=== PATIENT | female | born 1980 | race Caucasian/White ===

== ENCOUNTER 2016-05-19 19:17 | Emergency (ER) | payer OTHER ==
[~2016-05-19] VITALS: Ht 165.1 cm; Wt 90.7 kg
[~2016-05-19 19:17] MED LIST: ANAPROX DS550 MG PO; AUGMENTIN 875 M1 TAB PO; BACTROBAN OINT22 GM TP; CATAFLAM50 MG PO; CEPHALEXIN500 M1 PO; CLARITIN10 MG PO; COMPAZINE10 MG PO; DAYPRO600 M1 PO; FLAGYL500 MG PO; FLEXERIL10 MG PO; FLEXERIL5 MG PO; FLUCONAZOLE100 MG PO; HYDROCODONE BIT1 T11 PO; MACROBID100 M1 PO; MEDROL DOSEPAK4 MG PO; NAPROSYN500 MG PO; NKHM; PREDNISONE10 MG PO; PROVENTIL0.09 MG/AC IH; PYRIDIUM200 MG PO; ROBAXIN750 MG PO; TRAMADOL HCL50 MG PO; ULTRAM50 MG PO; VALTREX1 GM PO; VICODIN 500 MG-1 TAB PO; ZANTAC150 MG PO; ZITHROMAX Z PA250 MG PO; ZOFRAN ODT4 MG SL
[2016-05-19 19:22] VITALS: BP 139/86
[2016-05-19] MEDS ORDERED: HYDROCODONE BIT1 T11 PO (19:39)
[2016-05-19] MEDS ORDERED: BACTRIM DS 8001 TA1 PO (19:39)
[2016-05-19] MEDS ORDERED: CEPHALEXIN500 M1 PO (19:39)
== END 2016-05-19 19:40 | disposition home or self-care (01) ==
LOC: ED 19:17
DX: N61.0 Mastitis without abscess (principal); F17.200 Nicotine dependence, unspecified, uncomplicated; Z98.890 Other specified postprocedural states; Z88.6 Allergy status to analgesic agent

== ENCOUNTER 2016-05-21 18:51 | Emergency (ER) | payer OTHER ==
[~2016-05-21] VITALS: Ht 165.1 cm; Wt 86.2 kg
[~2016-05-21 18:51] MED LIST changes: +BACTRIM DS 8001 TA1 PO
[2016-05-21 19:15] VITALS: BP 133/75
[2016-05-21] MEDS ORDERED: CLINDAMYCIN150 MG PO (19:22)
[2016-05-21] MEDS ORDERED: ZOFRAN4 MG PO (19:22)
== END 2016-05-21 19:28 | disposition home or self-care (01) ==
LOC: ED 18:51
DX: L02.412 Cutaneous abscess of left axilla (principal); R03.0 Elevated blood-pressure reading, without diagnosis of hypertension; F17.200 Nicotine dependence, unspecified, uncomplicated; G43.909 Migraine, unspecified, not intractable, without status migrainosus

== ENCOUNTER 2016-08-03 20:51 | Emergency (ER) | payer OTHER ==
[~2016-08-03] VITALS: Wt 104.3 kg
[~2016-08-03 20:51] MED LIST changes: +CLINDAMYCIN150 MG PO; +ZOFRAN4 MG PO
[2016-08-03 20:54] VITALS: BP 142/78
[2016-08-03 21:08] LABS: BILIRUBIN NEGATIVE (NEGATIVE); BLOOD NEGATIVE (NEGATIVE); CLARITY SL CLOUDY (CLEAR); COLOR YELLOW (YELLOW); GLUCOSE NEGATIVE (NEGATIVE); KETONE NEGATIVE (NEGATIVE); LEUKO ESTERASE NEGATIVE (NEGATIVE); NITRITE NEGATIVE (NEGATIVE); PH 5.5 (5.0-9.0); PROTEIN NEGATIVE (NEGATIVE); SPECIFIC GRAVITY >= 1.030 (1.005-1.030); UROBILINOGEN 0.2 E.U./dl (0.2-1.0)
[2016-08-03 21:13] LABS: BACTERIA 2+; RBC 0-2 rbc/hpf (0-2); URINE REFLEX COMMENT YES (NO)
[2016-08-03 21:31] LABS: HEMATOCRIT 37.1 % (37.0-47.0); HEMOGLOBIN 12.5 g/dl (12.0-16.0); MEAN CELL VOLUME 83.9 fl (81.0-99.0); MEAN CORPUSCULAR HGB 28.3 pg (27.0-31.0); MEAN CORPUSCULAR HGB CONC 33.7 g/dl (33.0-37.0); MEAN PLATELET VOLUME 9.1 fl (9.6-12.3); PLATELET COUNT AUTOMATED 337 10*3/uL (130-400); RED BLOOD COUNT 4.42 10*6/uL (4.10-5.10); RED CELL DISTRI WIDTH 13.2 % (0-14.5); WHITE BLOOD COUNT 13.2 10*3/uL (4.8-10.8)
[2016-08-03 21:43] LABS: BUN 11 mg/dl (7-24); CARBON DIOXIDE 25 mmol/L (21-32); CHLORIDE 104 mmol/L (98-107); EST GLOM FILT AFRICAN AMERICAN > 60 ml/min; GLUCOSE 110 mg/dL (65-99); POTASSIUM 4.7 mmol/L (3.5-5.1); SODIUM 139 mmol/L (136-145)
[2016-08-03 21:51] LABS: EOSINOPHIL # 0.1 10*3/uL (0-0.4); EOSINOPHILS 1 % (1-4); LYMPHOCYTE # 5.4 10*3/uL (1.3-4.4); MONOCYTE # 0.5 10*3/uL (0.1-1.0); NEUTROPHIL # 7.1 10*3/uL (2.3-7.9); NEUTROPHILS 54 % (47-73); PLATELET SUFFICIENCY NORMAL (NORMAL); TOTAL CELLS COUNTED 100 #CELLS
[2016-08-03] MEDS ORDERED: KEFLEX500 M1 PO (22:29)
[2016-08-03] MEDS ORDERED: CIPRO500 MG PO (22:29)
[2016-08-03] MEDS ORDERED: LOMOTIL 0.025 M1 TA1 PO (22:29)
[2016-08-03] MEDS ORDERED: DIFLUCAN150 MG PO (22:33)
== END 2016-08-03 22:29 | disposition home or self-care (01) ==
LOC: ED 20:51
PROVIDERS: Emergency Medicine Emergency Medical Services
DX: K52.9 Noninfective gastroenteritis and colitis, unspecified (principal); L02.412 Cutaneous abscess of left axilla; L02.213 Cutaneous abscess of chest wall; M54.5 Low back pain; R30.0 Dysuria

== ENCOUNTER 2017-08-14 19:45 | Emergency (ER) | payer OTHER ==
[~2017-08-14] VITALS: Ht 165.1 cm; Wt 127.0 kg
[~2017-08-14 19:45] MED LIST changes: +CIPRO500 MG PO; +DIFLUCAN150 MG PO; +KEFLEX500 M1 PO; +LOMOTIL 0.025 M1 TA1 PO
[2017-08-14 20:08] VITALS: BP 148/88
[2017-08-14 20:17] LABS: BASO % 0.4 % (0.0-1.0); EOS # 0.2 10*3/uL (0.0-0.4); EOS % 1.8 % (1.0-4.0); HEMOGLOBIN 11.8 g/dl (12.0-16.0); LYMPH # 3.9 10*3/uL (1.3-4.4); LYMPH % 46.3 % (27.0-41.0); MEAN CELL VOLUME 86.9 fl (81.0-99.0); MEAN CORPUSCULAR HGB 27.7 pg (27.0-31.0); MEAN CORPUSCULAR HGB CONC 31.9 g/dl (33.0-37.0); MEAN PLATELET VOLUME 9.3 fl (9.6-12.3); MONO # 0.6 10*3/uL (0.1-1.0); MONO % 7.1 % (3.0-9.0); NEUT # 3.7 10*3/uL (2.3-7.9); NEUT % 44.2 % (47.0-73.0); PLATELET COUNT AUTOMATED 324 10*3/uL (130-400); RED BLOOD COUNT 4.26 10*6/uL (4.10-5.10); RED CELL DISTRI WIDTH 14.1 % (0-14.5); WHITE BLOOD COUNT 8.4 10*3/uL (4.8-10.8)
[2017-08-14 20:33] LABS: ALBUMIN 3.2 gm/dl (3.1-4.5); ALKALINE PHOSPHATASE 114 U/L (45-117); BUN 11 mg/dl (7-24); CHLORIDE 104 mmol/L (98-107); CREATININE 0.79 mg/dL (0.55-1.02); POTASSIUM 3.5 mmol/L (3.5-5.1); SGOT/AST 50 IU/L (3-35); SGPT/ALT 61 U/L (12-78); SODIUM 138 mmol/L (136-145); TOTAL PROTEIN 7.2 gm/dL (6.4-8.2)
[2017-08-14 20:35] LABS: TROPONIN I < 0.015 ng/ml (<0.045)
[2017-08-14 21:01] LABS: BILIRUBIN NEGATIVE (NEGATIVE); BLOOD TRACE-INTACT (NEGATIVE); CLARITY CLEAR (CLEAR); COLOR YELLOW (YELLOW); GLUCOSE TRACE (NEGATIVE); KETONE NEGATIVE (NEGATIVE); LEUKO ESTERASE NEGATIVE (NEGATIVE); NITRITE NEGATIVE (NEGATIVE); SPECIFIC GRAVITY >= 1.030 (1.005-1.030); UROBILINOGEN 0.2 E.U./dl (0.2-1.0)
[2017-08-14 21:10] LABS: BACTERIA 3+; EPITHELIAL CELLS 0-2; RBC 0-2 rbc/hpf (0-2)
== END 2017-08-14 21:59 | disposition home or self-care (01) ==
LOC: ED 19:45
PROVIDERS: Nurse Practitioner Family
DX: R60.0 Localized edema (principal); F17.200 Nicotine dependence, unspecified, uncomplicated

== ENCOUNTER → 2017-09-11 | Outpatient (CLI) | payer OTHER | END | disposition home or self-care (01) | LOC: CARD 02:53 | DX: Z01.810 Encounter for preprocedural cardiovascular examination (principal) ==

== ENCOUNTER 2018-10-23 20:20 | Emergency (ER) | payer OTHER ==
[~2018-10-23] VITALS: Ht 167.6 cm; Wt 117.9 kg
[2018-10-23 20:21] VITALS: BP 191/67
[2018-10-23] MEDS ORDERED: PERCOCET 7.5-31 EACH PO (20:24)
[2018-10-23] MEDS ORDERED: ZOLPIDEM TART10 MG PO (20:24)
[2018-10-23] MEDS ORDERED: SERTRALINE HYD100 MG PO (20:24)
[2018-10-23] MEDS ORDERED: AMOXICILLIN500 M2 PO (20:54)
== END 2018-10-23 21:00 | disposition home or self-care (01) ==
LOC: ED 20:20
DX: K08.89 Other specified disorders of teeth and supporting structures (principal); G43.909 Migraine, unspecified, not intractable, without status migrainosus; F17.200 Nicotine dependence, unspecified, uncomplicated; Z79.899 Other long term (current) drug therapy

== ENCOUNTER 2019-02-13 18:26 | Emergency (ER) | payer OTHER ==
[~2019-02-13] VITALS: Ht 165.1 cm; Wt 104.3 kg
[~2019-02-13 18:26] MED LIST changes: +AMOXICILLIN500 M2 PO; +PERCOCET 7.5-31 EACH PO; +SERTRALINE HYD100 MG PO; +ZOLPIDEM TART10 MG PO
[2019-02-13 18:28] VITALS: BP 145/80
[2019-02-13 19:09] LABS: BASO # 0.1 10*3/uL (0.0-0.1); BASO % 0.4 % (0.0-1.0); EOS # 0.2 10*3/uL (0.0-0.4); EOS % 1.2 % (1.0-4.0); HEMATOCRIT 36.1 % (37.0-47.0); HEMOGLOBIN 12.1 g/dl (12.0-16.0); LYMPH # 3.8 10*3/uL (1.3-4.4); LYMPH % 30.7 % (27.0-41.0); MEAN CELL VOLUME 86.8 fl (81.0-99.0); MEAN CORPUSCULAR HGB 29.1 pg (27.0-31.0); MEAN CORPUSCULAR HGB CONC 33.5 g/dl (33.0-37.0); MEAN PLATELET VOLUME 9.6 fl (9.6-12.3); MONO # 0.7 10*3/uL (0.1-1.0); MONO % 6.1 % (3.0-9.0); NEUT # 7.5 10*3/uL (2.3-7.9); NEUT % 61.2 % (47.0-73.0); PLATELET COUNT AUTOMATED 348 10*3/uL (130-400); RED BLOOD COUNT 4.16 10*6/uL (4.10-5.10); RED CELL DISTRI WIDTH 12.5 % (0-14.5); WHITE BLOOD COUNT 12.2 10*3/uL (4.8-10.8)
[2019-02-13 19:25] LABS: ALBUMIN 3.7 gm/dl (3.1-4.5); ALKALINE PHOSPHATASE 77 U/L (45-117); BUN 13 mg/dl (7-24); CHLORIDE 106 mmol/L (98-107); CREATININE 0.83 mg/dL (0.55-1.02); POTASSIUM 3.5 mmol/L (3.5-5.1); SGOT/AST 22 IU/L (3-35); SGPT/ALT 43 U/L (12-78); SODIUM 137 mmol/L (136-145); TOTAL PROTEIN 7.3 gm/dL (6.4-8.2)
== END 2019-02-13 20:49 | disposition home or self-care (01) ==
LOC: ED 18:26
PROVIDERS: Physician Assistant
DX: O20.0 Threatened abortion (principal); O99.351 Diseases of the nervous system complicating pregnancy, first trimester; G43.909 Migraine, unspecified, not intractable, without status migrainosus; O99.611 Diseases of the digestive system complicating pregnancy, first trimester; K21.9 Gastro-esophageal reflux disease without esophagitis; O99.331 Smoking (tobacco) complicating pregnancy, first trimester; Z3A.01 Less than 8 weeks gestation of pregnancy; Z79.899 Other long term (current) drug therapy

== ENCOUNTER 2019-04-08 18:48 | Emergency (ER) | payer OTHER ==
[~2019-04-08] VITALS: Ht 167.6 cm; Wt 104.3 kg
[2019-04-08 18:53] VITALS: BP 155/101
[2019-04-08] MEDS ORDERED: NAPROSYN500 MG PO (19:26)
[2019-04-08] MEDS ORDERED: AMOXICILLIN500 M2 PO (19:26)
== END 2019-04-08 19:43 | disposition home or self-care (01) ==
LOC: ED 18:48
DX: K08.89 Other specified disorders of teeth and supporting structures (principal); K02.9 Dental caries, unspecified; K21.9 Gastro-esophageal reflux disease without esophagitis; G43.909 Migraine, unspecified, not intractable, without status migrainosus; F17.200 Nicotine dependence, unspecified, uncomplicated; Z79.899 Other long term (current) drug therapy

== ENCOUNTER 2019-09-03 14:14 | Emergency (ER) | payer OTHER ==
[~2019-09-03] VITALS: Ht 167.6 cm; Wt 99.8 kg
[2019-09-03 14:22] VITALS: BP 122/56
[2019-09-03] MEDS ORDERED: NAPROXEN250 MG PO (14:45)
[2019-09-03] MEDS ORDERED: TYLENOL325 M1 PO (14:45)
[2019-09-03] MEDS ORDERED: CEPHALEXIN500 M1 PO (15:10)
== END 2019-09-03 15:15 | disposition home or self-care (01) ==
LOC: ED 14:14
DX: L02.411 Cutaneous abscess of right axilla (principal); L73.2 Hidradenitis suppurativa; K21.9 Gastro-esophageal reflux disease without esophagitis; G43.909 Migraine, unspecified, not intractable, without status migrainosus; F17.200 Nicotine dependence, unspecified, uncomplicated; Z79.899 Other long term (current) drug therapy

== ENCOUNTER → 2021-03-13 | Outpatient (CLI) | payer OTHER ==
[~2021-03-13] MED LIST changes: +NAPROXEN250 MG PO; +TYLENOL325 M1 PO
== END ==
LOC: US 02-13 10:30
PROVIDERS: ATTEND Internal Medicine Nephrology
DX: L02.818 Cutaneous abscess of other sites (principal)

== ENCOUNTER 2021-11-20 13:34 | Inpatient (IN) | payer OTHER ==
[~2021-11-20] VITALS: Ht 165.1 cm; Wt 145.3 kg
[2021-11-20 14:13] VITALS: BP 148/78
[2021-11-20 14:44] LABS: BASO # 0.1 10*3/uL (0.0-0.1); BASO % 0.5 % (0.0-1.0); EOS # 0.2 10*3/uL (0.0-0.4); HEMATOCRIT 42.8 % (37.0-47.0); LYMPH # 4.3 10*3/uL (1.3-4.4); LYMPH % 45.6 % (27.0-41.0); MEAN CELL VOLUME 86.1 fl (81.0-99.0); MEAN CORPUSCULAR HGB 28.8 pg (27.0-31.0); MEAN CORPUSCULAR HGB CONC 33.4 g/dl (33.0-37.0); MEAN PLATELET VOLUME 9.6 fl (9.6-12.3); MONO # 0.6 10*3/uL (0.1-1.0); MONO % 6.2 % (3.0-9.0); NEUT # 4.3 10*3/uL (2.3-7.9); NEUT % 45.6 % (47.0-73.0); PLATELET COUNT AUTOMATED 325 10*3/uL (130-400); RED BLOOD COUNT 4.97 10*6/uL (4.10-5.10); RED CELL DISTRI WIDTH 12.8 % (0-14.5); WHITE BLOOD COUNT 9.5 10*3/uL (4.8-10.8)
[2021-11-20] MEDS ORDERED: GABAPENTIN600 MG PO (14:48)
[2021-11-20] MEDS ORDERED: ATORVASTATIN CA10 M1 PO (14:48)
[2021-11-20] MEDS ORDERED: HYDROCHLOROTHIA25 M1 PO (14:48)
[2021-11-20 15:03] LABS: ALKALINE PHOSPHATASE 157 U/L (45-117); BUN 11 mg/dl (7-24); CHLORIDE 101 mmol/L (98-107); CREATININE 0.92 mg/dL (0.55-1.02); POTASSIUM 3.7 mmol/L (3.5-5.1); SGOT/AST 68 IU/L (3-35); SGPT/ALT 76 U/L (12-78); SODIUM 134 mmol/L (136-145); TOTAL PROTEIN 7.8 gm/dL (6.4-8.2)
[2021-11-20 17:44] VITALS: BP 141/78
[2021-11-20 18:00] VITALS: BP 117/66
[2021-11-20 20:00] VITALS: BP 129/68
[2021-11-21] VITALS (10 sets, daily range): BP systolic 109–157; BP diastolic 42–88
[2021-11-21 06:11] LABS: ACT PARTIAL THROMBO TIME 27.8 SECONDS (20.0-32.1)
[2021-11-21 06:12] LABS: BUN 10 mg/dl (7-24); CHLORIDE 105 mmol/L (98-107); CHOLESTEROL 174 mg/dL (<200); CREATININE 0.85 mg/dL (0.55-1.02); FREE T4 1.07 ng/dl (0.76-1.46); POTASSIUM 4.1 mmol/L (3.5-5.1); SGOT/AST 70 IU/L (3-35); SGPT/ALT 73 U/L (12-78); SODIUM 136 mmol/L (136-145); TOTAL PROTEIN 6.8 gm/dL (6.4-8.2); TRIGLYCERIDES 358 mg/dl (<150)
[2021-11-21 06:13] LABS: ALKALINE PHOSPHATASE 143 U/L (45-117); LDL CHOLESTEROL 80 mg/dL (9-159)
[2021-11-21 06:17] LABS: BASO % 0.4 % (0.0-1.0); EOS # 0.2 10*3/uL (0.0-0.4); EOS % 2.6 % (1.0-4.0); HEMATOCRIT 40.2 % (37.0-47.0); LYMPH # 3.7 10*3/uL (1.3-4.4); LYMPH % 43.9 % (27.0-41.0); MEAN CELL VOLUME 87.2 fl (81.0-99.0); MEAN CORPUSCULAR HGB 28.4 pg (27.0-31.0); MEAN CORPUSCULAR HGB CONC 32.6 g/dl (33.0-37.0); MONO # 0.5 10*3/uL (0.1-1.0); MONO % 6.2 % (3.0-9.0); NEUT # 3.9 10*3/uL (2.3-7.9); NEUT % 46.7 % (47.0-73.0); PLATELET COUNT AUTOMATED 281 10*3/uL (130-400); RED BLOOD COUNT 4.61 10*6/uL (4.10-5.10); RED CELL DISTRI WIDTH 13.1 % (0-14.5); WHITE BLOOD COUNT 8.4 10*3/uL (4.8-10.8)
[2021-11-21 08:56] LABS: VITAMIN D, 25-HYDROXY 21.5 ng/mL (30-100)
[2021-11-22] VITALS: BP 140/84
[2021-11-22 05:32] LABS: BUN 8 mg/dl (7-24); CHLORIDE 105 mmol/L (98-107); CREATININE 0.79 mg/dL (0.55-1.02); POTASSIUM 3.8 mmol/L (3.5-5.1); SODIUM 135 mmol/L (136-145)
[2021-11-22 06:27] LABS: BASO % 0.5 % (0.0-1.0); EOS # 0.3 10*3/uL (0.0-0.4); EOS % 3.5 % (1.0-4.0); HEMATOCRIT 39.4 % (37.0-47.0); LYMPH % 49.7 % (27.0-41.0); MEAN CELL VOLUME 87.6 fl (81.0-99.0); MEAN CORPUSCULAR HGB 28.7 pg (27.0-31.0); MEAN CORPUSCULAR HGB CONC 32.7 g/dl (33.0-37.0); MONO # 0.6 10*3/uL (0.1-1.0); MONO % 7.4 % (3.0-9.0); NEUT # 3.1 10*3/uL (2.3-7.9); NEUT % 38.8 % (47.0-73.0); PLATELET COUNT AUTOMATED 293 10*3/uL (130-400); RED CELL DISTRI WIDTH 13.1 % (0-14.5)
[2021-11-22 08:30] VITALS: BP 133/80
[2021-11-22 12:00] VITALS: BP 141/80
[2021-11-22 16:00] VITALS: BP 150/82
[2021-11-22 20:00] VITALS: BP 142/78
[2021-11-23] VITALS: BP 113/50
[2021-11-23 05:55] LABS: BUN 15 mg/dl (7-24); CHLORIDE 105 mmol/L (98-107); CREATININE 0.88 mg/dL (0.55-1.02); POTASSIUM 3.9 mmol/L (3.5-5.1); SODIUM 137 mmol/L (136-145)
[2021-11-23 06:30] LABS: BASO % 0.5 % (0.0-1.0); EOS # 0.3 10*3/uL (0.0-0.4); EOS % 3.8 % (1.0-4.0); HEMATOCRIT 40.3 % (37.0-47.0); LYMPH # 3.3 10*3/uL (1.3-4.4); LYMPH % 42.2 % (27.0-41.0); MEAN CELL VOLUME 87.2 fl (81.0-99.0); MEAN CORPUSCULAR HGB 28.4 pg (27.0-31.0); MEAN CORPUSCULAR HGB CONC 32.5 g/dl (33.0-37.0); MEAN PLATELET VOLUME 10.1 fl (9.6-12.3); MONO # 0.6 10*3/uL (0.1-1.0); MONO % 7.9 % (3.0-9.0); NEUT # 3.6 10*3/uL (2.3-7.9); NEUT % 45.3 % (47.0-73.0); PLATELET COUNT AUTOMATED 301 10*3/uL (130-400); RED BLOOD COUNT 4.62 10*6/uL (4.10-5.10); WHITE BLOOD COUNT 7.8 10*3/uL (4.8-10.8)
[2021-11-23 08:00] VITALS: BP 139/99
[2021-11-23 12:00] VITALS: BP 154/83
[2021-11-23] MEDS ORDERED: FLUOXETINE HCL10 MG PO (13:19)
[2021-11-23] MEDS ORDERED: VIBRA-TAB100 MG PO (13:31)
[2021-11-23] MEDS ORDERED: CLEOCIN T60 ML T (13:31)
[2021-11-23] MEDS ORDERED: NOVOLOG FL100 UNIT/2 SC (13:34)
[2021-11-23] MEDS ORDERED: LANTUS SOL100 UNIT/1 SC (13:34)
[2021-11-24] MEDS ORDERED: METFORMIN HYD1000 MG PO (08:35)
== END 2021-11-23 14:50 | disposition home or self-care (01) | DRG 385 ==
LOC: ED 13:34 → EDHOLD 15:30 → 4E 15:30
PROVIDERS: Physician Assistant; Student in an Organized Health Care Education/Training Program; ADMIT Internal Medicine; ATTEND Internal Medicine
PROC: 0H9U00Z Drainage of Left Breast with Drainage Device, Open Approach (ICD-10-PCS; principal; 2021-11-21)
DX: N61.1 Abscess of the breast and nipple (principal); L02.411 Cutaneous abscess of right axilla; E87.1 Hypo-osmolality and hyponatremia; E44.0 Moderate protein-calorie malnutrition; L73.2 Hidradenitis suppurativa; E87.2 Acidosis; J44.9 Chronic obstructive pulmonary disease, unspecified; E78.01 Familial hypercholesterolemia; F32.A Depression, unspecified; E11.65 Type 2 diabetes mellitus with hyperglycemia; R74.01 Elevation of levels of liver transaminase levels; Z82.49 Family history of ischemic heart disease and other diseases of the circulatory system; Z98.891 History of uterine scar from previous surgery; Z68.43 Body mass index [BMI] 50.0-59.9, adult

== ENCOUNTER → 2021-11-27 | Outpatient (CLI) | payer OTHER ==
[~2021-11-27] MED LIST changes: +ATORVASTATIN CA10 M1 PO; +CLEOCIN T60 ML T; +FLUOXETINE HCL10 MG PO; +GABAPENTIN600 MG PO; +HYDROCHLOROTHIA25 M1 PO; +LANTUS SOL100 UNIT/1 SC; +METFORMIN HYD1000 MG PO; +NOVOLOG FL100 UNIT/2 SC; +VIBRA-TAB100 MG PO
== END | disposition home or self-care (01) ==
LOC: WOUNDCARE 02:17
PROVIDERS: ATTEND Nurse Practitioner Family
DX: N61.1 Abscess of the breast and nipple (principal); E11.9 Type 2 diabetes mellitus without complications; E78.00 Pure hypercholesterolemia, unspecified; I10 Essential (primary) hypertension; J44.9 Chronic obstructive pulmonary disease, unspecified; F32.A Depression, unspecified; F17.200 Nicotine dependence, unspecified, uncomplicated; Z71.6 Tobacco abuse counseling

== ENCOUNTER → 2021-11-29 | Outpatient (CLI) | payer OTHER | END | disposition home or self-care (01) | LOC: WOUNDCARE 09:02 | PROVIDERS: ATTEND Nurse Practitioner Family | DX: N61.1 Abscess of the breast and nipple (principal); E11.628 Type 2 diabetes mellitus with other skin complications; E78.00 Pure hypercholesterolemia, unspecified; I10 Essential (primary) hypertension; J44.9 Chronic obstructive pulmonary disease, unspecified; F17.200 Nicotine dependence, unspecified, uncomplicated; F32.A Depression, unspecified; Z71.6 Tobacco abuse counseling ==

== ENCOUNTER 2022-07-03 21:24 | Emergency (ER) | payer OTHER ==
[2022-07-03 21:39] VITALS: BP 146/99
[2022-07-04] MEDS ORDERED: AMOXICILLIN500 M2 PO (00:33)
== END 2022-07-04 00:36 | disposition home or self-care (01) ==
LOC: ED 21:24
DX: S86.911A Strain of unspecified muscle(s) and tendon(s) at lower leg level, right leg, initial encounter (principal); S80.211A Abrasion, right knee, initial encounter; S09.90XA Unspecified injury of head, initial encounter; K21.9 Gastro-esophageal reflux disease without esophagitis; G43.909 Migraine, unspecified, not intractable, without status migrainosus; Z88.6 Allergy status to analgesic agent; Z88.8 Allergy status to other drugs, medicaments and biological substances; Z98.890 Other specified postprocedural states; F17.210 Nicotine dependence, cigarettes, uncomplicated; Y04.2XXA Assault by strike against or bumped into by another person, initial encounter; Y93.89 Activity, other specified; Y92.009 Unspecified place in unspecified non-institutional (private) residence as the place of occurrence of the external cause; Y99.8 Other external cause status

== ENCOUNTER → 2023-01-06 | Outpatient (CLI) | payer OTHER ==
[~2023-01-06] MED LIST changes: +LIPITOR10 MG PO; +LISINOPRIL10 M1 PO; +METFORMIN HYDR500 MG PO; +ONDANSETRON4 MG SL; +OXYCODONE-ACET1 EACH PO; +TRAZODONE50 MG PO; +TRULICITY1.5 MG/0.5 SC
[2023-01-06 18:09] LABS: HEMATOCRIT 39.4 % (37.0-47.0); MEAN CELL VOLUME 85.1 fl (81.0-99.0); MEAN CORPUSCULAR HGB 27.9 pg (27.0-31.0); MEAN CORPUSCULAR HGB CONC 32.7 g/dl (33.0-37.0); MEAN PLATELET VOLUME 9.2 fl (9.6-12.3); PLATELET COUNT AUTOMATED 344 10*3/uL (130-400); RED BLOOD COUNT 4.63 10*6/uL (4.10-5.10); RED CELL DISTRI WIDTH 13.6 % (0-14.5); WHITE BLOOD COUNT 11.8 10*3/uL (4.8-10.8)
[2023-01-06 18:14] LABS: MANUAL DIFF REFLEX YES
[2023-01-06 18:26] LABS: ALKALINE PHOSPHATASE 112 U/L (46-116); BUN 10 mg/dl (9-23); CHLORIDE 107 mmol/L (98-107); FREE T4 0.94 ng/dl (0.89-1.76); POTASSIUM 3.9 mmol/L (3.4-5.1); SGPT/ALT 34 U/L (5-49); TOTAL PROTEIN 7.5 gm/dL (6.0-8.0)
[2023-01-06 18:34] LABS: ATYPICAL LYMPHS 2 % (0-0); PLATELET SUFFICIENCY NORMAL (NORMAL); TOTAL CELLS COUNTED 100 #CELLS
== END | disposition home or self-care (01) ==
LOC: LAB 17:28
PROVIDERS: ATTEND Nurse Practitioner Family
DX: L65.9 Nonscarring hair loss, unspecified (principal)

== ENCOUNTER 2023-09-25 02:51 | Emergency (ER) | payer OTHER ==
[~2023-09-25] VITALS: Ht 165.1 cm; Wt 139.3 kg
[2023-09-25 02:54] VITALS: BP 154/81
[2023-09-25] MEDS ORDERED: HYDROCHLOROTHIA25 M1 PO (03:09)
[2023-09-25 03:20] LABS: MEAN CELL VOLUME 83.3 fl (81.0-99.0); MEAN CORPUSCULAR HGB 27.5 pg (27.0-31.0); MEAN PLATELET VOLUME 9.4 fl (9.6-12.3); PLATELET COUNT AUTOMATED 322 10*3/uL (130-400); RED BLOOD COUNT 5.16 10*6/uL (4.10-5.10); RED CELL DISTRI WIDTH 12.7 % (0-14.5); WHITE BLOOD COUNT 14.1 10*3/uL (4.8-10.8)
[2023-09-25 03:32] LABS: MANUAL DIFF REFLEX YES
[2023-09-25 03:41] LABS: ALKALINE PHOSPHATASE 151 U/L (46-116); BUN 14 mg/dl (9-23); CHLORIDE 101 mmol/L (98-107); SGPT/ALT 51 U/L (5-49); TOTAL PROTEIN 7.4 gm/dL (6.0-8.0)
[2023-09-25 03:59] LABS: PLATELET SUFFICIENCY NORMAL (NORMAL); TOTAL CELLS COUNTED 100 #CELLS
[2023-09-25] MEDS ORDERED: METHOCARBAMOL750 M1 PO (04:17)
[2023-09-25] MEDS ORDERED: NAPROXEN250 MG PO (04:17)
[2023-09-25] MEDS ORDERED: Ketorolac Tromethamine 60 MG/2 ML VIAL IM ONE (04:20)
[2023-09-25] MEDS ORDERED: POTASSIUM CHLORIDE 20 MEQ TAB PO ONE (04:20)
[2023-09-25] MEDS ORDERED: METHOCARBAMOL 500 MG TAB PO ONE (04:20)
== END 2023-09-25 04:45 | disposition home or self-care (01) ==
LOC: ED 02:51
PROVIDERS: Internal Medicine
DX: S29.012A Strain of muscle and tendon of back wall of thorax, initial encounter (principal); N18.31 Chronic kidney disease, stage 3a; R07.89 Other chest pain; R79.89 Other specified abnormal findings of blood chemistry; E87.6 Hypokalemia; E87.1 Hypo-osmolality and hyponatremia; D72.829 Elevated white blood cell count, unspecified; K21.9 Gastro-esophageal reflux disease without esophagitis; G43.909 Migraine, unspecified, not intractable, without status migrainosus; F17.210 Nicotine dependence, cigarettes, uncomplicated; Z88.6 Allergy status to analgesic agent; Z88.8 Allergy status to other drugs, medicaments and biological substances; Z98.890 Other specified postprocedural states; X58.XXXA Exposure to other specified factors, initial encounter; Y93.89 Activity, other specified; Y92.009 Unspecified place in unspecified non-institutional (private) residence as the place of occurrence of the external cause; Y99.8 Other external cause status

== ENCOUNTER → 2023-11-05 | Outpatient (CLI) | payer OTHER ==
[~2023-11-05] MED LIST changes: +METHOCARBAMOL750 M1 PO
== END | disposition home or self-care (01) ==
LOC: MAMMO 10-08 10:30
PROVIDERS: ATTEND Internal Medicine Nephrology
DX: Z12.31 Encounter for screening mammogram for malignant neoplasm of breast (principal)

== ENCOUNTER 2023-11-25 08:56 | Emergency (ER) | payer OTHER ==
[~2023-11-25] VITALS: Ht 165.1 cm; Wt 127.0 kg
[2023-11-25 09:14] VITALS: BP 138/77
[2023-11-25] MEDS ORDERED: ACETAMINOPHEN 325 MG TAB PO ONE (10:20)
[2023-11-25] MEDS ORDERED: Lidocaine Hydrochloride 5 ML AMP IJ ONE (10:20)
[2023-11-25] MEDS ORDERED: IBUPROFEN 400 MG TAB PO ONE (10:20)
== END 2023-11-25 10:56 | disposition home or self-care (01) ==
LOC: ED 08:56
DX: M54.2 Cervicalgia (principal); R22.0 Localized swelling, mass and lump, head; M54.6 Pain in thoracic spine; K21.9 Gastro-esophageal reflux disease without esophagitis; J44.9 Chronic obstructive pulmonary disease, unspecified; E11.65 Type 2 diabetes mellitus with hyperglycemia; E87.6 Hypokalemia; E87.1 Hypo-osmolality and hyponatremia; G43.909 Migraine, unspecified, not intractable, without status migrainosus; F17.210 Nicotine dependence, cigarettes, uncomplicated; Z88.6 Allergy status to analgesic agent; Z88.8 Allergy status to other drugs, medicaments and biological substances; Z98.890 Other specified postprocedural states; Z53.29 Procedure and treatment not carried out because of patient's decision for other reasons

== ENCOUNTER → 2024-06-03 | Outpatient (CLI) | payer OTHER ==
[2024-06-03 11:27] LABS: ALKALINE PHOSPHATASE 123 U/L (46-116); BUN 11 mg/dl (9-23); CHLORIDE 104 mmol/L (98-107); POTASSIUM 4.1 mmol/L (3.4-5.1); SGPT/ALT 64 U/L (5-49); TOTAL PROTEIN 7.7 gm/dL (6.0-8.0)
== END | disposition home or self-care (01) ==
LOC: LAB 10:44
PROVIDERS: ATTEND Internal Medicine
DX: E11.9 Type 2 diabetes mellitus without complications (principal)

== ENCOUNTER 2024-08-24 14:36 | Emergency (ER) | payer OTHER ==
[~2024-08-24] VITALS: Ht 165.1 cm; Wt 130.2 kg
[2024-08-24 14:54] VITALS: BP 130/62
[2024-08-24] MEDS ORDERED: Acetaminophen/Oxycodone 5 MG/325 MG TABLET PO ONE (15:20)
[2024-08-24 15:42] LABS: BASO # 0.0 10*3/uL (0.0-0.1); BASO % 0.3 % (0.0-1.0); EOS # 0.2 10*3/uL (0.0-0.4); EOS % 1.3 % (1.0-4.0); MEAN CELL VOLUME 84.6 fl (81.0-99.0); MEAN CORPUSCULAR HGB 27.7 pg (27.0-31.0); MEAN PLATELET VOLUME 8.9 fl (9.6-12.3); MONO # 0.8 10*3/uL (0.1-1.0); MONO % 6.3 % (3.0-9.0); NEUT # 7.2 10*3/uL (2.3-7.9); NEUT % 60.4 % (47.0-73.0); NUCLEATED RED BLOOD CELL 0.0 % (0.0-0.0); NUCLEATED RED BLOOD CELL 0.0 10*3/uL (0.0-0.0); PLATELET COUNT AUTOMATED 334 10*3/uL (130-400); RED CELL DISTRI WIDTH 13.5 % (0-14.5)
[2024-08-24 16:09] LABS: BUN 13 mg/dl (9-23)
[2024-08-24] MEDS ORDERED: Lidocaine Hydrochloride 2% 10 ML AMP SC ONE (17:55)
[2024-08-24] MEDS ORDERED: LIDOCAINE HCL/EPINEPHRINE 50 ML VIAL ONE (18:29)
[2024-08-24] MEDS ORDERED: VIBRAMYCIN100 MG PO (18:43)
[2024-08-24] MEDS ORDERED: CEPHALEXIN500 M1 PO (18:43)
[2024-08-24] MEDS ORDERED: CEPHALEXIN 500 MG CAP PO ONE (18:45)
== END 2024-08-24 18:53 | disposition home or self-care (01) ==
LOC: ED 14:36
PROVIDERS: Nurse Practitioner Family
DX: L02.411 Cutaneous abscess of right axilla (principal); L03.111 Cellulitis of right axilla; E11.22 Type 2 diabetes mellitus with diabetic chronic kidney disease; N18.31 Chronic kidney disease, stage 3a; J44.9 Chronic obstructive pulmonary disease, unspecified; F32.A Depression, unspecified; G43.909 Migraine, unspecified, not intractable, without status migrainosus; Z88.6 Allergy status to analgesic agent; Z88.8 Allergy status to other drugs, medicaments and biological substances; Z79.84 Long term (current) use of oral hypoglycemic drugs; Z79.899 Other long term (current) drug therapy; Z98.890 Other specified postprocedural states; Z87.891 Personal history of nicotine dependence

== ENCOUNTER 2024-10-03 20:20 | Emergency (ER) | payer OTHER ==
[~2024-10-03] VITALS: Ht 165.1 cm; Wt 122.5 kg
[~2024-10-03 20:20] MED LIST changes: +VIBRAMYCIN100 MG PO
[2024-10-03 20:47] VITALS: BP 138/76
[2024-10-03] MEDS ORDERED: PENICILLIN V POTASSIUM 500 MG TAB PO ONE (21:25)
[2024-10-03] MEDS ORDERED: BENZOCAINE 20% 11.9 GM GEL T STA (21:25)
[2024-10-03] MEDS ORDERED: PENICILLIN-VK500 MG PO (22:09)
[2024-10-03] MEDS ORDERED: NAPROSYN500 MG PO (22:10)
[2024-10-03] MEDS ORDERED: Acetaminophen/Hydrocodone 5 MG/325 MG TABLET PO ONE (22:20)
== END 2024-10-03 22:36 | disposition home or self-care (01) ==
LOC: ED 20:20
DX: K08.89 Other specified disorders of teeth and supporting structures (principal); F17.290 Nicotine dependence, other tobacco product, uncomplicated; Z98.890 Other specified postprocedural states; Z88.8 Allergy status to other drugs, medicaments and biological substances

== ENCOUNTER 2025-01-30 02:11 | Emergency (ER) | payer OTHER ==
[~2025-01-30] VITALS: Ht 160 cm; Wt 129.7 kg
[~2025-01-30 02:11] MED LIST changes: +PENICILLIN-VK500 MG PO
[2025-01-30 02:50] VITALS: BP 156/88
[2025-01-30] MEDS ORDERED: Sulfamethoxazole/Trimethopri 1 TAB TAB PO ONE (03:10)
== END 2025-01-30 03:24 | disposition home or self-care (01) ==
LOC: ED 02:11
DX: L02.414 Cutaneous abscess of left upper limb (principal); K21.9 Gastro-esophageal reflux disease without esophagitis; G43.909 Migraine, unspecified, not intractable, without status migrainosus; Z98.890 Other specified postprocedural states; Z88.8 Allergy status to other drugs, medicaments and biological substances